=== PATIENT | male | born 2000 | race Caucasian/White ===

== ENCOUNTER 2020-11-20 10:26 | Emergency (ER) | payer OTHER ==
[~2020-11-20] VITALS: Ht 193 cm; Wt 127.0 kg
[2020-11-20 10:41] VITALS: BP 127/71
[2020-11-20 11:27] LABS: URINE BILIRUBIN NEGATIVE (Negative); URINE BLOOD NEGATIVE (Negative); URINE CLARITY CLEAR; URINE COLOR YELLOW; URINE GLUCOSE-RANDOM* NEGATIVE (Negative); URINE KETONES TRACE (Negative); URINE LEUKOCYTES-REFLEX NEGATIVE (Negative); URINE NITRITE-REFLEX NEGATIVE (Negative); URINE PROTEIN (DIPSTICK) TRACE (Negative); URINE UROBILINOGEN 0.2 E.U./dl (0.2-1.0)
[2020-11-20 11:28] LABS: HEMATOCRIT 41.2 % (42.0-52.0); HEMOGLOBIN 14.2 gm/dL (14.0-18.0); MCH 29.6 pg (26.0-34.0); MCHC 34.5 g/dL (28.0-37.0); MCV 85.8 fL (80.0-100.0); RBC 4.81 mil/uL (4.50-6.00); WBC 10.5 thou/uL (4.0-11.0)
[2020-11-20 11:31] LABS: ANION GAP 14 mmol/L (7-16); BUN 18 mg/dL (7-18); CALCIUM 9.7 mg/dL (8.5-10.1); CHLORIDE 108 mmol/L (98-107); CO2 22 mmol/L (21-32); CREATININE 1.3 mg/dL (0.7-1.3); GLUCOSE 93 mg/dL (74-106); POTASSIUM 3.7 mmol/L (3.5-5.1); SODIUM 144 mmol/L (136-145)
[2020-11-20 11:47] LABS: ALBUMIN 4.2 g/dL (3.4-5.0); SGOT 65 U/L (15-37); SGPT 55 U/L (16-63); TOTAL BILIRUBIN 0.9 mg/dL (0.2-1.0); TOTAL PROTEIN 7.6 g/dL (6.4-8.2); TROPONIN-I <0.06 ng/mL (<0.06)
--- NOTE | 2020-11-20 13:51 | EKG ---
[address] [address] ELECTROCARDIOGRAM REPORT Name: LION BUNN Room #: [facility] Bebeto#: [id number] Admission: 11/20/20 Attend Phys: Discharge: 11/20/20 Date of : 89 Report #: [id number] [facility] ED Test Date: 2020-11-20 Test Time: 10:35:56 Pat Name: LION BUNN Department: Room: Gender: [employer]: PAOLO : 2000 Requested By: Idalia Smith Order Number: [id number] MD: Cas Duffy Measurements Intervals [place] Rate: 84 P: 41 CA: 135 QRS: 28 QRSD: 121 T: 15 QT: 374 QTc: 443 Interpretive Statements Sinus rhythm Right bundle branch block No previous ECG available for comparison Electronically Signed On 11-20-2020 13:51:41 CDT by Cas Duffy [email or web address] <ELECTRONICALLY SIGNED> By: Cas Duffy MD 11/20/20 1351 1035 1035 Cas Duffy MD /EPI
== END 2020-11-20 12:48 | disposition home or self-care (01) ==
LOC: ER 10:26
PROVIDERS: Nurse Practitioner Family
DX: M62.82 Rhabdomyolysis (principal); Z20.822 Contact with and (suspected) exposure to COVID-19; J45.909 Unspecified asthma, uncomplicated